=== PATIENT | male | born 1975 | race Caucasian/White ===

== ENCOUNTER 2016-09-15 21:11 | Emergency (ER) | payer SELFPAY ==
[~2016-09-15 21:11] MED LIST: BACTRIM DS1 TAB PO; CELEXA20 M1 PO; CELEXA20 MG PO; CELEXA40 M1 PO; DEPAKOTE ER500 MG PO; DEPAKOTE500 MG PO; HYDRALAZINE PO; IBUPROFEN400 MG PO; MULTIVITAMIN1 TAB PO; NO HOME MEDICATION XX; NO HOME MEDS; NO MEDS; NORCO 5-325 TA1 EACH PO; NORCO 5/325 TAB1 TAB PO; TRAMADOL HCL50 M2 PO; TRAZODONE HCL150 MG PO; TRAZODONE100 MG PO; TYLENOL #31 TA1 PO; VIBRAMYCIN100 M1 PO
[2016-09-15] MEDS ORDERED: IBUPROFEN600 M1 PO (21:43)
== END 2016-09-15 21:55 ==
LOC: EDMED 21:11
DX: M25.511 Pain in right shoulder (principal); F17.210 Nicotine dependence, cigarettes, uncomplicated